=== PATIENT | male | born 1955 | race Caucasian/White ===

== ENCOUNTER 2020-03-05 11:17 | Emergency (ER) | payer MEDICARE, MEDICAID ==
[2020-03-05] MEDS ORDERED: KETOROLAC TROMETHAMINE INJ 30 MG/ML VIAL IV ONE (12:37)
[2020-03-05] MEDS ORDERED: SODIUM CHLORIDE 0.9% (FLUSH) 10 ML SYG IV PRN (12:37)
[2020-03-05] MEDS ORDERED: SODIUM CHLORIDE 0.9% 1000ML 1,000 ML IVS ONE (12:37)
[2020-03-05] MEDS ORDERED: LIDOCAINE 2% 5 ML VIAL INJ ONE (12:38)
[2020-03-05] MEDS ORDERED: LIDOCAINE 2% 100 MG/5 ML SYG IV ONE ×2 (12:42→12:47)
[2020-03-05] MEDS ORDERED: ONDANSETRON INJ 4 MG/2 ML VIAL IV ONE (12:57)
--- NOTE | 2020-03-05 13:44 | CT ---
CT ABDOMEN PELVIS WITHOUT IV CONTRAST HISTORY: 64 years Male right flank pain COMPARISON: None. TECHNIQUE: Helical tomographic images of the abdomen and pelvis were obtained without the use of intravenous contrast. Coronal and sagittal reformatted images were also provided. This exam was performed according to our departmental dose-optimization program, which includes automated exposure control, adjustment of the mA and/or kV according to patient size and/or use of iterative reconstruction technique. FINDINGS: Included thorax: No acute process detected. Liver: Unremarkable. Gallbladder and biliary ducts: Unremarkable. Pancreas: Unremarkable. Spleen: Unremarkable. Adrenal glands: Unremarkable. Kidneys and ureters: Multiple 1-2 mm nonobstructive calculi are present within the kidneys bilaterally. There is a 2 mm calculus within the distal right ureter (2/163) just proximal to the ureterovesicular junction, with resultant mild right hydronephrosis. Left ureter is decompressed. Simple appearing cysts are present within the kidneys bilaterally, the largest measuring 5.2 cm in the upper pole of the right kidney. Urinary bladder: Bladder is decompressed and otherwise not well assessed. Reproductive organs: Prostate appears unremarkable. Bowel: Unremarkable. Lymph nodes: No lymphadenopathy detected. Peritoneal cavity: No free intraperitoneal fluid or free air detected. Vessels: There are scattered atherosclerotic changes noted. Abdominal wall: Small fat-containing right inguinal hernia. Bones: No acute process detected. IMPRESSION: 2 mm calculus just proximal to the right UVJ with mild right hydronephrosis. Additional incidental findings as discussed. Electronically signed by: Cesar Roberts MD 03/05/2020 1:43 PM CDT
[2020-03-05] MEDS ORDERED: HYDROmorphone HCL INJ 2 MG/ML VIAL IV ONE (14:06)
--- NOTE | 2020-03-05 15:03 | ED.PDOC ---
History of Present Illness - General Chief Complaint: GI Problem Stated Complaint: right flank pain Time Seen by Provider: 03/05/20 12:37 Source: patient, RN notes reviewed, Vital Signs reviewed Exam Limitations: no limitations - History of Present Illness Initial Comments: Patient presents with complaints of right flank pain starting yesterday. Patient has a history of kidney stones. His last kidney stone was approximately 10 years ago. The pain is radiating to his right abdomen. The pain is more severe in intensity. Nothing makes it better or worse. Timing/Duration: 24 hours Severity: moderate Improving Factors: nothing Associated Symptoms: loss of appetite, nausea/vomiting - Nausea only Allergies/Adverse Reactions: Allergies Cephalexin Allergy (Verified 03/05/20 12:09) Latex Allergy (Verified 03/05/20 12:09) Home Medications: Ambulatory Orders Acetaminophen W/ Codeine [Tylenol W/ CODEINE #3] 1 tablet PO Q6H #20 ea 03/05/20 Ciprofloxacin [Cipro] 500 mg PO BID #14 tab 03/05/20 Ketorolac Tromethamine [Toradol Tabs] 10 mg PO Q6H #12 tab 03/05/20 Ondansetron [Ondansetron Odt] 4 mg PO Q6HRS #20 tab 03/05/20 Review of Systems - Review of Systems Constitutional: States: no symptoms reported, see HPI. Denies: chills, fever, malaise, weakness EENTM: States: no symptoms reported. Denies: eye pain, blurred vision, double vision Respiratory: States: no symptoms reported. Denies: cough, short of breath, wheezing Cardiology: States: no symptoms reported. Denies: chest pain, palpitations, syncope Gastrointestinal/Abdominal: States: see HPI, abdominal pain, nausea. Denies: diarrhea, vomiting Genitourinary: States: no symptoms reported. Denies: dysuria, frequency, hematuria Musculoskeletal: States: see HPI, back pain. Denies: joint pain, neck pain Skin: States: no symptoms reported. Denies: change in color, rash Neurological: States: no symptoms reported. Denies: tingling, tremors, weakness Endocrine: States: no symptoms reported. Denies: increased hunger, increased thirst, increased urine Hematologic/Lymphatic: States: no symptoms reported. Denies: blood clots, easy bleeding All other Systems: No Change from Baseline Past Medical History (General) - Patient Medical History Hx Seizures: No Hx Stroke: No Hx Asthma: No Hx Cardiac Disorders: No Hx Gastroesophageal Reflux: No Hx Renal Disease: - kidney stones Family Medical History - Family History Mother Family History: No Known Physical Exam - Physical Exam General Appearance: Alert, Anxious, Obvious distress, Well Developed, Well Groomed, Well Hydrated, Well Nourished Eye Exam: bilateral normal Ears, Nose, Throat: hearing grossly normal, normal ENT inspection, normal pharynx Neck: non-tender, full range of motion, supple Respiratory: chest non-tender, lungs clear, normal breath sounds, no respiratory distress, no accessory muscle use Cardiovascular/Chest: normal peripheral pulses, regular rate, rhythm, no edema, no JVD, no murmur Peripheral Pulses: radial,right: 2+, radial,left: 2+ Gastrointestinal/Abdominal: normal bowel sounds, non tender, soft, distended Back Exam: normal inspection, no vertebral tenderness, CVA tenderness (R) Extremity: normal range of motion, non-tender, normal inspection 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 03/05/20 15:07 Patient with improved pain after meds IV. Patient also with kidney stone and a mild urinary tract infection. Plan on discharge home on antibiotics and on pain meds. I discussed this plan of care with the patient he voices understanding and agreement. Pierre Maria M.D. #[id number] - Results/Orders Results/Orders: CT ABDOMEN PELVIS WITHOUT IV CONTRAST HISTORY: 64 years Male right flank pain COMPARISON: None. TECHNIQUE: Helical tomographic images of the abdomen and pelvis were obtained without the use of intravenous contrast. Coronal and sagittal reformatted images were also provided. This exam was performed according to our departmental dose-optimization program, which includes automated exposure control, adjustment of the mA and/or kV according to patient size and/or use of iterative reconstruction technique. FINDINGS: Included thorax: No acute process detected. Liver: Unremarkable. Gallbladder and biliary ducts: Unremarkable. Pancreas: Unremarkable. Spleen: Unremarkable. Adrenal glands: Unremarkable. Kidneys and ureters: Multiple 1-2 mm nonobstructive calculi are present within the kidneys bilaterally. There is a 2 mm calculus within the distal right ureter (2/163) just proximal to the ureterovesicular junction, with resultant mild right hydronephrosis. Left ureter is decompressed. Simple appearing cysts are present within the kidneys bilaterally, the largest measuring 5.2 cm in the upper pole of the right kidney. Urinary bladder: Bladder is decompressed and otherwise not well assessed. Reproductive organs: Prostate appears unremarkable. Bowel: Unremarkable. Lymph nodes: No lymphadenopathy detected. Peritoneal cavity: No free intraperitoneal fluid or free air detected. Vessels: There are scattered atherosclerotic changes noted. Abdominal wall: Small fat-containing right inguinal hernia. Bones: No acute process detected. IMPRESSION: 2 mm calculus just proximal to t he right UVJ with mild right hydronephrosis. Additional incidental findings as discussed. Electronically signed by: Cesar Roberts MD 03/05/2020 1:43 03/05/20 12:37 IV Care:Saline Lock per Protoc QSHIFT Sodium Chloride 0.9% (Flush) [Saline Flush Syringe] 10 ml IV PRN PRN 03/05/20 12:45 EKG STAT Laboratory Results - last 24 hr 03/05/20 03/05/20 03/05/20 12:10 12:52 12:52 WBC 9.3 RBC 4.67 L Hgb 14.6 Hct 43.3 MCV 92.6 MCH 31.3 H MCHC 33.8 RDW 13.9 Plt Count 138 MPV 9.8 Absolute Neuts (auto) 5.70 Absolute Lymphs (auto) 2.50 Absolute Monos (auto) 0.80 Absolute Eos (auto) 0.30 Absolute Basos (auto) 0.10 Neutrophils % 60.8 Lymphocytes % 26.7 Monocytes % 8.5 Eosinophils % 3.0 Basophils % 1.0 Sodium 142 Potassium 3.8 Chloride 106 Carbon Dioxide 23 Anion Gap 16.8 BUN 22 H Creatinine 1.06 BUN/Creatinine Ratio 20.8 H Random Glucose 131 H Serum Osmolality 288.3 Calcium 8.8 Total Bilirubin 0.6 Direct Bilirubin 0.1 Indirect Bilirubin 0.5 AST 29 ALT 31 Alkaline Phosphatase 46 Serum Total Protein 7.2 Albumin 4.5 Lipase 43 Urine Color Yellow Urine Appearance Clear Urine pH 5.5 Ur Specific [place] >= 1.030 Urine Protein >=300 H Urine Glucose (UA) Negative Urine Ketones Trace Urine Blood Trace-intact H Urine Nitrite Negative Urine Bilirubin Small H Urine Urobilinogen 0.2 Ur Leukocyte Esterase Negative Urine RBC 3-5 H Urine WBC 1-3 Ur Epithelial Cells 1-3 Amorphous Sediment 2+ Urine Bacteria 1+ Urine Mucus Large Vital Signs 03/05/20 12:10 Temperature 98.3 F Pulse Rate [ 80 left brachial] Respiratory 24 Rate Blood Pressure 175/107 [right brachial ] O2 Sat by Pulse 99 Oximetry EKG performed 05 March 2020 at 1250 hrs.: Normal sinus rhythm at 76 bpm, left axis deviation, left bundle branch block, abnormal EKG. No comparison EKG available at this time. Departure - Departure Clinical Impression: Ureterolithiasis UTI (urinary tract infection) Qualifiers: Urinary tract infection type: acute cystitis Hematuria presence: without hematuria Qualified Code(s): N30.00 - Acute cystitis without hematuria Time of Disposition: 15:29 Disposition: Discharge to Home or Self Care Condition: Good Departure Forms: ED Discharge - Pt. Copy, Patient Portal Self Enrollment Instructions: Kidney Stones (DC), Urinary Tract Infection, Adult (DC) Diet: resume usual diet Activity: ambulate only with walker Referrals: KEVIN PARKS MD [Consulting Staff] - 1-5 Days Prescriptions: Ondansetron [Ondansetron Odt] 4 mg PO Q6HRS #20 tab Ciprofloxacin [Cipro] 500 mg PO BID #14 tab Ketorolac Tromethamine [Toradol Tabs] 10 mg PO Q6H #12 tab Acetaminophen W/ Codeine [Tylenol W/ CODEINE #3] 1 tablet PO Q6H #20 ea Home Medications: Ambulatory Orders Acetaminophen W/ Codeine [Tylenol W/ CODEINE #3] 1 tablet PO Q6H #20 ea 03/05/20 Ciprofloxacin [Cipro] 500 mg PO BID #14 tab 03/05/20 Ketorolac Tromethamine [Toradol Tabs] 10 mg PO Q6H #12 tab 03/05/20 Ondansetron [Ondansetron Odt] 4 mg PO Q6HRS #20 tab 03/05/20
[2020-03-05] MEDS ORDERED: CIPROFLOXACIN 500 MG TAB PO ONE (15:27)
[2020-03-05 16:35] VITALS: BP 169/96; TEMP 98; O2SAT 92
== END 2020-03-05 16:00 | disposition home or self-care (01) ==
LOC: ER 11:17
DX: N13.2 Hydronephrosis with renal and ureteral calculous obstruction (principal); N30.00 Acute cystitis without hematuria; I44.7 Left bundle-branch block, unspecified; Z87.442 Personal history of urinary calculi; Z88.1 Allergy status to other antibiotic agents; Z91.040 Latex allergy status
CPT/HCPCS: 36415; 74176; 80048; 80076; 81001; 83690; 85025; 93005; A4216; J1170; J1885; J2405; J7030